=== PATIENT | male | born 1970 | race Caucasian/White ===

== ENCOUNTER 2024-08-31 06:02 | Emergency (ER) | payer MEDICAID, OTHER ==
[~2024-08-31] VITALS: Ht 185.4 cm; Wt 90.7 kg
[2024-08-31] MEDS ORDERED: CEFEPIME 1 GM VIAL ONE (06:40)
[2024-08-31] MEDS ORDERED: VANCOMYCIN 1 GM /D5W 250 ML PB IV ONE (06:41)
[2024-08-31 07:02] LABS: BASOPHILS % (AUTO) 0.4 % (0.0-2.0); EOSINOPHILS # (AUTO) 0.1 K/uL (0.0-0.7); EOSINOPHILS % (AUTO) 1.1 % (0.0-6.0); HEMATOCRIT 43 % (39-51); HEMOGLOBIN 14.9 g/dL (13.5-17.5); LYMPHOCYTES # (AUTO) 2.1 K/uL (0.8-4.8); MEAN CORPUSCULAR HEMOGLOBIN 31 PG (26.0-33.0); MEAN CORPUSCULAR HGB CONC 35 g/dl (31.0-36.0); MEAN CORPUSCULAR VOLUME 90 fL (80-96); MONOCYTES # (AUTO) 0.7 K/uL (0.1-1.30); MONOCYTES % (AUTO) 9.2 % (2.0-12.0); NEUTROPHILS # (AUTO) 4.8 K/uL (1.8-8.9); NEUTROPHILS % (AUTO) 62.3 % (43.0-81.0); PLATELET COUNT (AUTO) 239 K/uL (150-450); RED BLOOD CELL COUNT(AUTO) 4.74 MIL/uL (4.5-6.0); RED CELL DISTRIBUTION WIDTH 13.6 % (11.5-15.0); WHITE BLOOD COUNT (AUTO) 7.8 K/uL (4.3-11.0)
[2024-08-31] MEDS: IV NS 0.9% 1,000 ML BAG IV ONE (07:03)
[2024-08-31 07:09] LABS: CALCIUM, SERUM 8.8 mg/dL (8.5-10.1); CREATININE 0.8 mg/dL (0.6-1.3); POTASSIUM 3.5 mmol/L (3.5-5.1)
[2024-08-31 07:14] LABS: ALBUMIN 3.4 g/dL (3.4-5.0); BILIRUBIN,DIRECT 0.1 mg/dL (0.0-0.2); BILIRUBIN,TOTAL 0.3 mg/dL (0.2-1.0); TOTAL PROTEIN, SERUM 8.2 g/dL (6.4-8.2)
[2024-08-31 07:16] LABS: INR 1.03 (0.91-1.10); PARTIAL THROMBOPLASTIN TIME 28.4 SEC (24.3-34.3); PROTHROMBIN TIME 10.9 SECS (9.2-11.1)
[2024-08-31 07:21] LABS: LACTIC ACID 0.9 mmol/L (0.4-2.0)
[2024-08-31] MEDS: CEFEPIME 1 GM in IV D5W 50 ML IV ONE (07:26)
[2024-08-31] MEDS ORDERED: CEPH500C2 PO (08:19)
[2024-08-31] MEDS ORDERED: FLUC150T5 PO (08:19)
[2024-08-31] MEDS ORDERED: BACL10TA PO (08:19)
[2024-08-31] MEDS ORDERED: HYDR-3980 PO (08:19)
[2024-08-31] MEDS ORDERED: GABA300C PO (08:19)
[2024-08-31] MEDS ORDERED: IBUP-1957 PO (08:19)
[2024-08-31] MEDS ORDERED: BICT1TAB PO (08:19)
[2024-08-31] MEDS: VANCOMYCIN 1 GM in IV D5W 250 ML IV ONE (08:34)
[2024-08-31 13:38] VITALS: BP 118/71; TEMP 97.9; O2SAT 96
== END 2024-08-31 13:25 | disposition short-term general hospital (02) ==
LOC: ER 06:20
DX: L03.116 Cellulitis of left lower limb (principal); I73.9 Peripheral vascular disease, unspecified; Z88.0 Allergy status to penicillin; Z79.899 Other long term (current) drug therapy; Z20.822 Contact with and (suspected) exposure to COVID-19; Z86.2 Personal history of diseases of the blood and blood-forming organs and certain disorders involving the immune mechanism
CPT/HCPCS: 99285; 96365; 71045; 96367; 87426; 93005; 84145; 85025; 80048; 87040 ×2; 83605; 80076; 36415; 85730; J3370 ×2; J7060 ×2; J7030; J0692 ×2